=== PATIENT | male | born 1995 | race Caucasian/White ===

== ENCOUNTER 2023-06-01 15:11 | Emergency (ER) | payer BC ==
[~2023-06-01] VITALS: Ht 182.9 cm; Wt 67.2 kg
[2023-06-01 15:17] VITALS: BP 125/73; PULSE 73; RESP 16; TEMP 98.5; O2SAT 99
== END 2023-06-01 16:00 | disposition home or self-care (01) ==
LOC: ER 15:12
DX: S67.191A Crushing injury of left index finger, initial encounter (principal); X58.XXXA Exposure to other specified factors, initial encounter; Y93.89 Activity, other specified; Y92.89 Other specified places as the place of occurrence of the external cause; Y99.8 Other external cause status
CPT/HCPCS: 99282

== ENCOUNTER 2023-11-16 11:09 | Emergency (ER) | payer BC ==
[~2023-11-16] VITALS: Ht 182.9 cm; Wt 69.3 kg
[2023-11-16 11:37] LABS: BASOPHILS % (AUTO) 0.5 % (0-1); EOSINOPHILS # (AUTO) 0.1 X10'3 (0-0.9); EOSINOPHILS % (AUTO) 2.4 % (0-6); HEMATOCRIT 49.7 % (42.0-52.0); HEMOGLOBIN 16.9 g/dl (14.0-17.9); LYMPHOCYTES # (AUTO) 1.7 X10'3 (1.1-4.8); MEAN CORPUSCULAR HEMOGLOBIN 30.2 PG (27.0-31.0); MEAN CORPUSCULAR VOLUME 88.8 FL (78-98); MEAN PLATELET VOLUME 8.1 FL (7.4-10.4); MONOCYTES # (AUTO) 0.3 X10'3 (0-0.9); NEUTROPHILS # (AUTO) 2.5 X10'3 (1.8-7.7); NEUTROPHILS % (AUTO) 54.1 % (42-75); PLATELET COUNT 199 X10'3 (140-440); RED BLOOD COUNT 5.59 X10'6 (4.70-6.10); RED CELL DISTRIBUTION WIDTH 13.2 % (11.5-14.5); WHITE BLOOD COUNT 4.6 X10'3 (4.5-11.0)
[2023-11-16 11:46] LABS: ALBUMIN 4.5 G/DL (3.4-5.0); ANION GAP 6 (8-16); BLOOD UREA NITROGEN 10 MG/DL (7-18); BUN/CREATININE RATIO 11.1 (10.0-20.0); CALCIUM 9.4 MG/DL (8.5-10.1); CHLORIDE 107 MMOL/L (99-107); GLUCOSE 97 MG/DL (70-104); POTASSIUM 4.2 MMOL/L (3.5-5.1); SODIUM 143 MMOL/L (135-145); TOTAL CARBON DIOXIDE 29.8 MMOL/L (24-32); eCRCL 121 ML/MIN; eGFR > 90 ML/MIN
[2023-11-16 11:50] LABS: APTT 29 SECONDS (22-32); INR 1.1 INR
[2023-11-16 14:05] VITALS: BP 109/70; PULSE 65; RESP 16; O2SAT 98
== END 2023-11-16 14:23 | disposition home or self-care (01) ==
LOC: ER 11:09
DX: R20.2 Paresthesia of skin (principal); I49.8 Other specified cardiac arrhythmias; Z88.0 Allergy status to penicillin
CPT/HCPCS: 36415; 70450; 71045; 80048; 82948; 85025; 85610; 85730; 93005; 99285